=== PATIENT | male | born 1980 | race African-American/Black ===

== ENCOUNTER 2021-08-27 06:51 | Emergency (ER) | payer MEDICAID, OTHER ==
[~2021-08-27] VITALS: Ht 180.3 cm; Wt 90.9 kg
[~2021-08-27 06:51] MED LIST: ALBUTEROL; PREDNISONE
[2021-08-27] MEDS ORDERED: ONDANSETRON HCL 4MG/2ML INJ IV ONE (08:15)
[2021-08-27 08:25] LABS: BASOPHILS % 0.6 % (0.0-2.0); EOSINOPHILS % 0.1 % (0.0-5.0); HEMATOCRIT. 45.7 % (42.0-52.0); HEMOGLOBIN. 15.3 g/dL (14.0-18.0); LYMPHOCYTES % 13.2 % (20.0-50.0); MEAN CORPUSCULAR HEMOGLOBIN 28.4 pg (28.0-32.0); MONOCYTES % 10.7 % (2.0-8.0); NEUTROPHILS % 75.4 % (40.0-76.0); PLATELET 210 x1000/uL (130-400); RED BLOOD CELL COUNT 5.38 mill/uL (4.7-6.1); RED CELL DISTRIBUTION WIDTH 13.2 % (11.6-14.6)
[2021-08-27 08:31] LABS: CHLORIDE 100 mEq/L (98-107)
[2021-08-27] MEDS ORDERED: ACETAMINOPHEN 325MG TABLET PO NR (10:00)
[2021-08-27] MEDS ORDERED: KETOROLAC 30MG/ML VIAL IV NR (10:00)
[2021-08-27] MEDS ORDERED: DEXAMETHASONE 10 MG/ML VIAL IV ONE (11:00)
[2021-08-27] MEDS ORDERED: AZITHROMYCIN 500 MG in DEXT 5% WATER 250 ML IV SCH (11:00)
[2021-08-27] MEDS ORDERED: CEFTRIAXONE 1 G PREMIX 50 ML IV ONE (11:00)
[2021-08-27] MEDS ORDERED: AZITHROMYCIN 500MG/250ML 250 ML IV SCH (11:15)
[2021-08-27 14:45] VITALS: BP 142/75
== END 2021-08-27 14:47 | disposition short-term general hospital (02) ==
LOC: ER 06:59 → CANBEDREQ 22:58
DX: U07.1 COVID-19 (principal); J12.82 Pneumonia due to coronavirus disease 2019; J45.909 Unspecified asthma, uncomplicated
CPT/HCPCS: 36415; 71045; 80053; 83690; 83880; 84484; 85025; 93005; 96365; 96366; 96368; 96375; 99285; C9803; J0456; J0696; J1100; J1885; J2405; U0003; U0005; Z7610; J7060